=== PATIENT | female | born 1995 | race Caucasian/White ===

== ENCOUNTER 2016-11-20 14:26 | Emergency (ER) | payer MEDICAID ==
[~2016-11-20] VITALS: Ht 142.2 cm; Wt 47.0 kg
[2016-11-20 14:30] VITALS: Ht 142.2 cm; Wt 47.0 kg
[2016-11-20] MEDS ORDERED: ONDANSETRON 4 MG INJ IV STA (15:14)
[2016-11-20] MEDS ORDERED: morphine 4 MG/ML VIAL IV STA (15:14)
[2016-11-20] MEDS ORDERED: SOD CHLORIDE 0.9% 1,000 ML IV STA (15:14)
[2016-11-20 15:39] LABS: ADD SCAN DIFF NO
[2016-11-20 15:40] LABS: BASOPHIL # 0.1 10^3/ul (0.0-0.1); BASOPHILS % 0.5 % (0.0-2.0); EOSINOPHILS # 0.1 10^3/ul (0.0-0.5); EOSINOPHILS % 0.7 % (0.0-7.0); HEMATOCRIT 36.7 % (37.0-47.0); HEMOGLOBIN 12.5 g/dl (12.0-16.0); LYMPHOCYTES # 2.7 10^3/ul (0.8-2.9); LYMPHOCYTES % 25.8 % (15.0-51.0); MEAN CORPUSCULAR HEMOGLOBIN 30.4 pg (29.0-33.0); MEAN CORPUSCULAR HGB CONC 34.1 g/dl (32.0-37.0); MEAN CORPUSCULAR VOLUME 89.3 fl (82.0-101.0); MEAN PLATELET VOLUME 11.1 fl (7.4-10.4); MONOCYTE # 0.8 10^3/ul (0.3-0.9); MONOCYTES % 7.3 % (0.0-11.0); NEUTROPHILS % 65.5 % (39.0-77.0); PLATELET COUNT 269 10^3/UL (140-415); RED BLOOD COUNT 4.11 10^6/ul (4.20-5.40); RED CELL DISTRIBUTION WIDTH 12.6 % (11.5-14.5); WHITE BLOOD COUNT 10.6 10^3/ul (4.8-10.8)
[2016-11-20 15:46] LABS: ADD UMIC YES; UR ASCORBIC ACID NEGATIVE (NEGATIVE); UR BILIRUBIN (Dip) NEGATIVE (NEGATIVE); UR BLOOD (Dip) NEGATIVE (NEGATIVE); UR CLARITY CLOUDY (CLEAR); UR COLOR YELLOW (YELLOW); UR GLUCOSE (Dip) NEGATIVE (NEGATIVE); UR KETONES (Dip) NEGATIVE (NEGATIVE); UR LEUKOCYTE ESTERASE (Dip) NEGATIVE Leu/ul (NEGATIVE); UR NITRITE (Dip) NEGATIVE (NEGATIVE); UR RBC 8 /HPF (0-5); UR SPECIFIC GRAVITY (Dip) 1.015 (1.003-1.030); UR SQUAMOUS EPITHELIAL CELL MODERATE /HPF (FEW); UR TOTAL PROTEIN (Dip) NEGATIVE (NEGATIVE); UR UROBILINOGEN (Dip) NEGATIVE (NEGATIVE)
[2016-11-20 15:59] LABS: ALBUMIN/GLOBULIN RATIO 1.85; BILIRUBIN,INDIRECT 0.2 mg/dl (0-1.1); BILIRUBIN,TOTAL 0.2 mg/dl (0.2-1.3); CALCIUM 8.9 mg/dl (8.4-10.2); CREATININE 0.67 mg/dl (0.44-1.00); POTASSIUM 3.7 mmol/L (3.5-5.1); TOTAL PROTEIN 7.7 g/dl (6.1-8.1)
--- NOTE | 2016-11-20 16:06 | RADRPT ---
AMENDMENT: 11/20/2016 5:01:35 PM Barber Ferguson M.D The vermiform appendix is not visualized. There are no secondary signs to suggest appendicitis. Tr robert fluid is present in the pelvis. There is a clinical concern for an ovarian abnormalities such a s a hemorrhagic cyst and ultrasound should be considered for evaluation. PROCEDURE: CT scan of the abdomen and pelvis without IV contrast. CLINICAL INDICATION: 21-year-old female with abdominal pain. TECHNIQUE: Thin section axial, coronal and sagittal images were performed through the abdomen and pelvis without contrast. Radiation Dose: CTDI: 6.45 and DLP: 314 One or more of the following dose reduction techniques were used: - Automated exposure control. - Adjustment of the mA and/or kV according to patient size. Use of iterative reconstruction technique. COMPARISON: Chest x-ray 06/30/2016 06:18 a.m. FINDINGS: Soft tissues: Normal.. Lungs and pleural spaces: Normal. Heart: Normal. The liver, common bile duct and gallbladder: Normal. Gastrointestinal: The stomach and small bowel loops are unremarkable. There is fecal material throu ghout the colon. Pancreas: Normal. Kidneys, bladder and adrenal glands : Normal. Spleen: Normal. Lymph nodes: Normal. Reproductive system and pelvis : Normal. The uterus is retroflexed. Bony elements: Normal. Vasculature: Normal. IMPRESSION: 1. Constipation. 2. Retroflexed uterus. 3. Otherwise, unremarkable CT scan of the abdomen pelvis performed without IV contrast. RPTAT:AAJJ Physician Bre Date Time Electronically viewed and signed by Kimani Ferguson Physician on 11/20/2016 17:01 LAVONNE/
--- NOTE | 2016-11-20 17:45 | RADRPT ---
PROCEDURE: US Pelvis. CLINICAL INDICATION: Right pelvic pain. TECHNIQUE: The pelvis was evaluated with transabdominal sonography in the axial and sagittal plane s. COMPARISON: CT scan of the abdomen and pelvis dated 11/20/2016. FINDINGS: Uterus: 8.4 x 3.5 x 4.8 cm. Endometrium: 9.6 mm. Right ovary: 3.7 x 2.7 x 3.1 cm. Left ovary: 2.8 x 1.9 x 2.4 cm. Uterine masses: None. Ovarian masses: The right ovary has a benign-appearing cyst measuring 2.9 x 2.0 x 2.6 cm. There are no internal echoes or septations. The ovaries are otherwise normal. Color Doppler and pulsed Doppl er sonography demonstrate normal flow to the ovaries. Other pelvic masses: None. Free fluid: None. IMPRESSION: 1. Benign-appearing right ovarian cyst measuring 2.9 x 2.0 x 2.6 cm. No further evaluation require d. 2. Otherwise unremarkable pelvic ultrasound. RPTAT: QQ .Duarte Kilgore MD, Date Time Electronically viewed and signed by .Duarte Kilgore MD, on 11/20/2016 17:44 .R/
[2016-11-20] MEDS ORDERED: IBUP400T22 PO (17:59)
--- NOTE | 2016-11-20 19:52 | ERD ---
ER Documentation Chief Complaint Date/Time DATE: 11/20/16 TIME: 19:49 Chief Complaint Sent from for eval R/O appy HPI 21-year-old female patient with no significant past medical history was sent here by her primary care physician to rule out appendicitis. Patient reports that she has right lower quadrant abdominal pain that started earlier today. Denies any vomiting, diarrhea, constipation, chest pain, shortness of breath, fever, chills. Patient reports that it is achy and rates it a 10 out of 10. States that she did not take any pain medications. Reports that her last menses was sometime 3 weeks ago. Denies any vaginal bleeding or vaginal discharge. ROS All systems reviewed and are negative except as per history of present illness. Medications Home Meds Active Scripts Ibuprofen* (Motrin*) 400 Mg Tab, 400 MG PO Q6, #30 TAB Prov:ELIZ ROBINS PA-C 11/20/16 Allergies Allergies: Coded Allergies: No Known Allergy (Unverified , 11/20/16) PMhx/Soc Medical and Surgical Hx: pt denies Medical Hx, pt denies Surgical Hx Hx Alcohol Use: No Hx Substance Use: No Hx Tobacco Use: No Smoking Status: Never smoker Physical Exam Vitals Vital Signs Date Time Temp Pulse Resp B/P Pulse Ox O2 Delivery O2 Flow Rate FiO2 11/20/16 14:30 98.3 94 20 110/78 98 Physical Exam Const: [id number]-ecn-[id number], well-nourished. In no acute distress. Head: Atraumatic, normocephalic Eyes: Normal Conjunctiva without injection. No purulent discharge. ENT: Normal external ear, nose. Moist oropharynx without tonsillar exudates. Non -erythematous pharynx. Uvula midline. No drooling. No trismus. Neck: No cervical midline tenderness. Full range of motion. No meningismus. No cervical lymphadenopathy. No JVD. Resp: Clear to auscultation bilaterally. No wheezing, rhonchi, rales, or crackles. No accessory muscle use. No retractions. Cardio: Regular rate and rhythm. No murmurs, rubs or gallops. Abd: Soft, right lower quadrant tenderness, non distended. Normal bowel sounds. No palpable masses. No rebound tenderness. No guarding. Negative McBurney' s point. Negative psoas sign. Negative obturator sign. Skin: No petechiae or rashes Back: No midline tenderness. No CVA tenderness. Ext: No cyanosis, or edema. Neur: Awake and alert. Normal gait. Normal coordination. Psych: Normal Mood and Affect Results 24 hrs Laboratory Tests Test 11/20/16 15:15 11/20/16 15:20 Urine Color YELLOW Urine Clarity CLOUDY Urine pH 7.0 Urine Specific [place] 1.015 Urine Ketones NEGATIVEmg/dL Urine Nitrite NEGATIVEmg/dL Urine Bilirubin NEGATIVEmg/dL Urine Urobilinogen NEGATIVEmg/dL Urine Leukocyte Esterase NEGATIVELeu/ul Urine Microscopic RBC 8/HPF Urine Microscopic WBC 3/HPF Urine Squamous Epithelial Cells MODERATE/HPF Urine Hemoglobin NEGATIVEmg/dL Urine Glucose NEGATIVEmg/dL Urine Total Protein NEGATIVEmg/dl White Blood Count 10.610^3/ul Red Blood Count 4.1110^6/ul Hemoglobin 12.5g/dl Hematocrit 36.7% Mean Corpuscular Volume 89.3fl Mean Corpuscular Hemoglobin 30.4pg Mean Corpuscular Hemoglobin Concent 34.1g/dl Red Cell Distribution Width 12.6% Platelet Count 86606^3/UL Mean Platelet Volume 11.1fl Neutrophils % 65.5% Lymphocytes % 25.8% Monocytes % 7.3% Eosinophils % 0.7% Basophils % 0.5% Nucleated Red Blood Cells % 0.0/100WBC Neutrophils # 7.010^3/ul Lymphocytes # 2.710^3/ul Monocytes # 0.810^3/ul Eosinophils # 0.110^3/ul Basophils # 0.110^3/ul Nucleated Red Blood Cells # 0.010^3/ul Sodium Level 137mmol/L Potassium Level 3.7mmol/L Chloride Level 101mmol/L Carbon Dioxide Level 27mmol/L Anion Gap 13 Blood Urea Nitrogen 12mg/dl Creatinine 0.67mg/dl Glucose Level 81mg/dl Calcium Level 8.9mg/dl Total Bilirubin 0.2mg/dl Direct Bilirubin 0.00mg/dl Indirect Bilirubin 0.2mg/dl Aspartate Amino Transf (AST/SGOT) 19IU/L Alanine Aminotransferase (ALT/SGPT) 29IU/L Alkaline Phosphatase 79IU/L Total Protein 7.7g/dl Albumin 5.0g/dl Globulin 2.70g/dl Albumin/Globulin Ratio 1.85 Lipase 86U/L Current Medications Medications (Trade) Dose Ordered Sig/Deanna Route PRN Reason Start Time Stop Time Status Last Admin Dose Admin Sodium Chloride (NS) 1,000 ml @ 1,000 mls/hr Q1H STAT IV 11/20/16 15:14 11/20/16 16:13 DC 11/20/16 15:32 Morphine Sulfate (morphine) 4 mg ONCE STAT IV 11/20/16 15:14 11/20/16 15:16 DC 11/20/16 15:31 Ondansetron HCl (Zofran Inj) 4 mg ONCE STAT IV 11/20/16 15:14 11/20/16 15:16 DC 11/20/16 15:32 Procedures/MDM This is a 21-year-old female patient with no significant past medical history presents the ED complaining of right lower quadrant abdominal pain that started earlier today. Patient is afebrile and nontoxic-appearing. Patient has normal vital signs. Patient was further worked up with CBC, CMP, lipase, UA, urine , CT of the abdomen and pelvis without contrast. Patient's pain and symptoms have improved after treatment with 4 mg IV morphine, 4 mg IV Zofran. CBC: No leukocytosis. No e/o of systemic infection. No e/o anemia. CMP: No e/o severe acidosis, alkalosis, renal failure, diabetic ketoacidosis, liver disease Lipase within normal limits. Urine: No leukocyte esterase, no nitrites, no hematuria. Urine : Negative AMENDMENT: 11/20/2016 5:01:35 PM Barber Boss M.D The vermiform appendix is not visualized. There are no secondary signs to suggest appendicitis. Trace fluid is present in the pelvis. There is a clinical concern for an ovarian abnormalities such as a hemorrhagic cyst and ultrasound should be considered for evaluation. PROCEDURE: CT scan of the abdomen and pelvis without IV contrast. CLINICAL INDICATION: 21-year-old female with abdominal pain. TECHNIQUE: Thin section axial, coronal and sagittal images were performed through the abdomen and pelvis without contrast. Radiation Dose: CTDI: 6.45 and DLP: 314 One or more of the following dose reduction techniques were used: - Automated exposure control. - Adjustment of the mA and/or kV according to patient size. Use of iterative reconstruction technique. COMPARISON: Chest x-ray 06/30/2016 06:18 a.m. FINDINGS: Soft tissues: Normal.. Lungs and pleural spaces: Normal. Heart: Normal. The liver, common bile duct and gallbladder: Normal. Gastrointestinal: The stomach and small bowel loops are unremarkable. There is fecal material throughout the colon. Pancreas: Normal. Kidneys, bladder and adrenal glands : Normal. Spleen: Normal. Lymph nodes: Normal. Reproductive system and pelvis : Normal. The uterus is retroflexed. Bony elements: Normal. Vasculature: Normal. IMPRESSION: 1. Constipation. 2. Retroflexed uterus. 3. Otherwise, unremarkable CT scan of the abdomen pelvis performed without IV contrast. PROCEDURE: US Pelvis. CLINICAL INDICATION: Right pelvic pain. TECHNIQUE: The pelvis was evaluated with transabdominal sonography in the axial and sagittal planes. COMPARISON: CT scan of the abdomen and pelvis dated 11/20/2016. FINDINGS: Uterus: 8.4 x 3.5 x 4.8 cm. Endometrium: 9.6 mm. Right ovary: 3.7 x 2.7 x 3.1 cm. Left ovary: 2.8 x 1.9 x 2.4 cm. Uterine masses: None. Ovarian masses: The right ovary has a benign-appearing cyst measuring 2.9 x 2.0 x 2.6 cm. There are no internal echoes or septations. The ovaries are otherwise normal. Color Doppler and pulsed Doppler sonography demonstrate normal flow to the ovaries. Other pelvic masses: None. Free fluid: None. IMPRESSION: 1. Benign-appearing right ovarian cyst measuring 2.9 x 2.0 x 2.6 cm. No further evaluation required. 2. Otherwise unremarkable pelvic ultrasound. Symptoms could likely be secondary to a right ovarian cyst noted to be 2.92.0 2.6 cm in size. Low suspicion for gastritis, GERD, peptic ulcer disease, cholecystitis, choledocholithiasis, cholangitis, pancreatitis, appendicitis, bowel obstruction, ileus, volvulus, nephrolithiasis, pyelonephritis, hepatitis, perforated viscus, diverticulitis, abdominal hernia, acute abdomen, mesenteric ischemia or other emergent conditions. Discharge medications: Ibuprofen Follow up with primary care physician in 1-2 days for referral to an DIAL PRINTER. Instructed patient to return to the ED sooner for any worsening symptoms. Patient's questions were answered. Patient understood and agreed with discharge plan. Patient discharged stable. Departure Diagnosis: Primary Impression: Ovarian cyst Laterality: right Qualified Code: N83.201 - Cyst of right ovary Condition: Stable Patient Instructions: Abdominal Pain, Ovarian Cyst Referrals: [facility] YOU HAVE RECEIVED A MEDICAL SCREENING EXAM AND THE RESULTS INDICATE THAT YOU DO NOT HAVE A CONDITION THAT REQUIRES URGENT TREATMENT IN THE EMERGENCY DEPARTMENT. FURTHER EVALUATION AND TREATMENT OF YOUR CONDITION CAN WAIT UNTIL YOU ARE SEEN IN YOUR DOCTORS OFFICE WITHIN THE NEXT 1-2 DAYS. IT IS YOUR RESPONSIBILITY TO MAKE AN APPOINTMENT FOR FOLOW-UP CARE. IF YOU HAVE A PRIMARY DOCTOR --you should call your primary doctor and schedule an appointment IF YOU DO NOT HAVE A PRIMARY DOCTOR YOU CAN CALL OUR PHYSICIAN REFERRAL HOTLINE AT IF YOU CAN NOT AFFORD TO SEE A PHYSICIAN YOU CAN CHOSE FROM THE FOLLOWING [facility] [address] [facility] [address] [facility] [address] [facility] [address] [facility] [address] [facility]. [facility] [address] [facility]. [facility] YOU HAVE RECEIVED A MEDICAL SCREENING EXAM AND THE RESULTS INDICATE THAT YOU DO NOT HAVE A CONDITION THAT REQUIRES URGENT TREATMENT IN THE EMERGENCY DEPARTMENT. FURTHER EVALUATION AND TREATMENT OF YOUR CONDITION CAN WAIT UNTIL YOU ARE SEEN IN YOUR DOCTORS OFFICE WITHIN THE NEXT 1-2 DAYS. IT IS YOUR RESPONSIBILITY TO MAKE AN APPOINTMENT FOR FOLOW-UP CARE. IF YOU HAVE A PRIMARY DOCTOR --you should call your primary doctor and schedule and appointment IF YOU DO NOT HAVE A PRIMARY DOCTOR YOU CAN CALL OUR PHYSICIAN REFERRAL HOTLINE AT . IF YOU CAN NOT AFFORD TO SEE A PHYSICIAN YOU CAN CHOSE FROM THE FOLLOWING [facility]: [facility] [address] [place] [address] [facility] [address] [place] [address] [facility] [address] [place] [address] [facility]RGENT C[facility]/SPECIALTIES Additional Instructions: Visite a matthews kyle duenas para un EXAMEN para cori referencia a un gineclogo .Regrese a estas instalaciones si no se mejora emily esperbamos o emily le dijimos fiebre, nuseas, vmitos, diarrea, dolor abdominal de empeoramiento. ELIZ ROBINS PA-C Nov 20, 2016 19:51 dijimos fiebre, nuseas, vmitos, diarrea, dolor abdominal de empeoramiento. ELIZ ROBINS PA-C Nov 20, 2016 19:51
== END 2016-11-20 18:06 | disposition left against medical advice (07) ==
LOC: FTE 14:26
DX: N83.201 Unspecified ovarian cyst, right side (principal); R10.2 Pelvic and perineal pain
CPT/HCPCS: 36415; 74176; 76856; 80053; 81001; 83690; 85025; 96374; 96375; J2270; J2405; J7030; Z7502

== ENCOUNTER 2017-05-02 21:21 | Emergency (ER) | payer MEDICAID ==
[~2017-05-02] VITALS: Ht 152.4 cm; Wt 45.9 kg
[~2017-05-02 21:21] MED LIST: IBUP400T22 PO
[2017-05-02 21:29] VITALS: Ht 152.4 cm; Wt 45.9 kg
[2017-05-02] MEDS ORDERED: SOD CHLORIDE 0.9% 1,000 ML IV STA (22:26)
[2017-05-02] MEDS ORDERED: ONDANSETRON 4 MG INJ IV STA (22:26)
[2017-05-02] MEDS ORDERED: morphine 4 MG/ML VIAL IV STA (22:26)
--- NOTE | 2017-05-02 22:52 | ERD ---
ER Documentation Chief Complaint Chief Complaint R side abd pain and vomit x 3 days; LMP 04/23/17 HPI 22-year-old female presents here to emergency department for complaints of right lower quadrant abdominal pain that started 3 days ago. Patient describes the pain as sharp pain, 6/10 scale, accompanied with vomiting. Patient denies any hematuria or dysuria. Patient denies any fever chills. Patient denies any blood in the vomit. Patient denies any blood in his stool or black stool. Patient denies any sick contacts. ROS All systems reviewed and are negative except as per history of present illness. Medications Home Meds Active Scripts Ondansetron (Ondansetron Odt) 4 Mg Tab.rapdis, 4 MG PO Q6H Y for NAUSEA AND/OR VOMITING, #20 TAB Prov:ANA MARÍA MORTON NP 05/03/17 Hydrocodone/Acetaminophen ([place] 5-325 Tablet) 1 Each Tablet, 1 TAB PO Q6H Y for PAIN, #20 TAB Prov:ANA MARÍA MORTON NP 05/03/17 Ibuprofen* (Motrin*) 600 Mg Tab, 600 MG PO Q6H Y for PAIN AND OR ELEVATED TEMP, #30 TAB Prov:ANA MARÍA MORTON NP 05/03/17 Ibuprofen* (Motrin*) 400 Mg Tab, 400 MG PO Q6, #30 TAB Prov:ELIZ ROBINS PA-C 11/20/16 Allergies Allergies: Coded Allergies: No Known Allergy (Unverified , 11/20/16) PMhx/Soc Medical and Surgical Hx: pt denies Medical Hx, pt denies Surgical Hx Hx Alcohol Use: No Hx Substance Use: No Hx Tobacco Use: No FmHx Family History: No coronary disease, No diabetes, No other Physical Exam Vitals Vital Signs Date Time Temp Pulse Resp B/P Pulse Ox O2 Delivery O2 Flow Rate FiO2 05/03/17 01:28 97.5 80 20 93/55 100 Room Air 05/02/17 21:29 97.7 89 20 121/69 99 Physical Exam GENERAL: The patient is well developed and appropriate for usual state of health, in no apparent distress. CHEST: Clear to auscultation bilaterally. There are no rales, wheezes or rhonchi. HEART: Regular rate and rhythm. No murmurs, clicks, rubs or gallops. No S3 or S4. ABDOMEN: Soft, nontender and nondistended. Good bowel sounds. No rebound or guarding. No gross peritonitis. No gross organomegaly or masses. No Amin sign or McBurney point tenderness. BACK: No midline or flank tenderness. EXTREMITIES: Equal pulses bilaterally. There is no peripheral clubbing, cyanosis or edema. No focal swelling or erythema. Full range of motion. Grossly neurovascularly intact. NEURO: Alert and oriented. Cranial nerves 2-12 intact. Motor strength in all 4 extremities with 5/5 strength. Sensation grossly intact. Normal speech and gait. SKIN: There is no apparent rash or petechia. The skin is warm and dry. HEMATOLOGIC AND LYMPHATIC: There is no evidence of excessive bruising or lymphedema. No gross cervical, axillary, or inguinal lymphadenopathy. Result Diagram: 05/02/17223905/02/172239 Results 24 hrs Laboratory Tests Test 05/02/17 22:40 White Blood Count 11.410^3/ul Red Blood Count 4.3710^6/ul Hemoglobin 13.2g/dl Hematocrit 37.3% Mean Corpuscular Volume 85.4fl Mean Corpuscular Hemoglobin 30.2pg Mean Corpuscular Hemoglobin Concent 35.4g/dl Red Cell Distribution Width 11.8% Platelet Count 15542^3/UL Mean Platelet Volume 11.1fl Neutrophils % 65.0% Lymphocytes % 19.4% Monocytes % 6.3% Eosinophils % 8.3% Basophils % 0.7% Nucleated Red Blood Cells % 0.0/100WBC Neutrophils # 7.410^3/ul Lymphocytes # 2.210^3/ul Monocytes # 0.710^3/ul Eosinophils # 1.010^3/ul Basophils # 0.110^3/ul Nucleated Red Blood Cells # 0.010^3/ul Urine Color YELLOW Urine Clarity CLEAR Urine pH 5.0 Urine Specific [place] 1.024 Urine Ketones 2+mg/dL Urine Nitrite NEGATIVEmg/dL Urine Bilirubin NEGATIVEmg/dL Urine Urobilinogen 1+mg/dL Urine Leukocyte Esterase TRACELeu/ul Urine Microscopic RBC 6/HPF Urine Microscopic WBC 44/HPF Urine Squamous Epithelial Cells FEW/HPF Urine Mucus MODERATE/HPF Urine Hemoglobin NEGATIVEmg/dL Urine Glucose NEGATIVEmg/dL Urine Total Protein NEGATIVEmg/dl Sodium Level 141mmol/L Potassium Level 3.5mmol/L Chloride Level 104mmol/L Carbon Dioxide Level 26mmol/L Anion Gap 15 Blood Urea Nitrogen 16mg/dl Creatinine 0.62mg/dl Glucose Level 94mg/dl Calcium Level 9.5mg/dl Total Bilirubin 0.5mg/dl Direct Bilirubin 0.00mg/dl Indirect Bilirubin 0.5mg/dl Aspartate Amino Transf (AST/SGOT) 22IU/L Alanine Aminotransferase (ALT/SGPT) 32IU/L Alkaline Phosphatase 104IU/L Total Protein 8.3g/dl Albumin 4.6g/dl Globulin 3.70g/dl Albumin/Globulin Ratio 1.24 Lipase 52U/L Current Medications Medications (Trade) Dose Ordered Sig/Deanna Route PRN Reason Start Time Stop Time Status Last Admin Dose Admin Sodium Chloride (NS) 1,000 ml @ 1,000 mls/hr Q1H STAT IV 05/02/17 22:26 05/02/17 23:25 DC 05/02/17 22:45 Morphine Sulfate (morphine) 4 mg ONCE STAT IV 05/02/17 22:26 05/02/17 22:28 DC 05/02/17 22:46 Ondansetron HCl (Zofran Inj) 4 mg ONCE STAT IV 05/02/17 22:26 05/02/17 22:28 DC 05/02/17 22:45 Ketorolac Tromethamine (Toradol) 30 mg ONCE STAT IV 05/03/17 00:28 05/03/17 00:30 DC 05/03/17 00:33 Patient was given medication for pain here in emergency department, after treatment, patient verbalized feeling much better. Patient's pain is improved. Patient was given Zofran here in the emergency department. After treatment, patient was able to tolerate po fluids here in the emergency department without any vomiting. There is no signs and symptoms of dehydration. Normal saline IV bolus was given here in emergency department for rehydration, patient tolerated IV fluids. PROCEDURE: CT Abdomen and Pelvis without contrast. CLINICAL INDICATION: Right lower quadrant abdominal pain times 3 days TECHNIQUE: CT scan of the abdomen and pelvis without contrast was performed on a multidetector high-resolution CT scanner. The patient was scanned without intravenous contrast. Coronal and sagittal reformatted images were obtained from the axial source images. Images were reviewed on a high-resolution PACS workstation. The total exam CTDI equals 4.09 mGy and the total exam DLP equals 221.79 mGy-cm. One or more the following dose reduction techniques were utilized: Automated exposure control, adjustment of the mA and / or kV according to patient's size, or use of iterative reconstruction technique. DICOM images are available. COMPARISON: CT 11/20/2016 FINDINGS: Minimal linear atelectasis/fibrosis at the lung bases. No pneumoperitoneum is seen. No abnormality is seen in the liver, gallbladder, spleen, pancreas, adrenals, kidneys. No renal stone, hydronephrosis or ureteral stone is seen. No definite abnormality is seen in the stomach. No biliary dilatation is seen. No abdominal aortic aneurysm is seen. The bladder is nearly empty. No definite abnormality of the uterus or adnexal regions is seen on CT. There is a small amount of free fluid in cul-de-sac. Stool seen in much of the colon. There is no specific evidence of acute appendicitis seen. No dilated small bowel loops are seen. No enlarged lymph nodes are seen in the abdomen or pelvis. No osseous abnormality is seen. IMPRESSION: Small amount of free fluid in cul-de-sac which may be physiologic. No normal appendix is seen. No specific evidence of acute appendicitis is seen. Please see above. RPTAT: HJES .Barber Lei MD, Date Time Electronically viewed and signed by .Barber Lei MD, on 05/02/2017 23:27 .S/ CC: ANA MARÍA MORTON NP PROCEDURE: US Pelvis. CLINICAL INDICATION: Right lower quadrant/pelvic abdominal pain. Last menstrual period 04/25/2017 TECHNIQUE: Multiple sonographic images of the pelvis were obtained utilizing a transabdominal and endovaginal technique. The images were reviewed on a PACS workstation. COMPARISON: CT abdomen and pelvis without contrast of 05/02/2017 and pelvic ultrasound of 11/20/2016 FINDINGS: The uterus measures 6.6 x 3.6 x 2.9 cm and is unremarkable. The thickness of the endometrium equals 1.3 mm. The right ovary measures 3.2 x 1.8 x 1.9 cm and is unremarkable. The left ovary is not seen. Color flow and spectral analysis demonstrates normal arterial and venous flow in the right ovary. No adnexal mass is seen. Small amount of free fluid in cul-de-sac and right adnexal region. IMPRESSION: Small amount of free fluid in cul-de-sac and right adnexal region which may be physiologic. Left ovary not seen. Otherwise unremarkable examination. RPTAT: HJES .Barber Lei MD, MD Date Time Electronically viewed and signed by .Barber Lei MD, MD on 05/03/2017 00:22 .S/ CC: ANA MARÍA MORTON STONE REPAIRER Procedures/MDM Medical Decision Making: Patient symptoms of abdominal pain nonspecific at this time, there is low suspicion for abdominal emergencies at this time. Patients abdominal exam is normal at this time. Patients radiology exam does not show any abdominal emergencies at this time. There is low suspicion for appendicitis , cholecystitis, abdominal aortic aneurysms or peritonitis at this time. No symptoms of ovarian torsion. There is low suspicion for sepsis. Patient appears well and is hemodynamically stable. Disposition: Home. Condition: Stable Prescription ibuprofen [place] Zofran Instructions: Patient is advised to take medications as prescribed. Patient is advised to rest, increase fluid intake and do brat diet for next 1-2 days and progress as tolerated. Patient is advised that if symptoms are worse, severe abdominal pain, uncontrolled vomiting, high fever, severe flank pain, worst signs and symptoms, to return to the emergency department immediately. Otherwise, patient can follow up with primary care doctor in 5-7 days. Disclaimer: Inadvertent spelling and grammatical errors are likely due to EHR/ dictation software use and do not reflect on the overall quality of patient care. Also, please note that the electronic time recorded on this note does not necessarily reflect the actual time of the patient encounter. Departure Diagnosis: Primary Impression: Abdominal pain Abdominal location: right lower quadrant Qualified Code: R10.31 - Right lower quadrant abdominal pain Condition: Stable ANA MARÍA MORTON NP May 02, 2017 22:52
[2017-05-02 23:13] LABS: BASOPHIL # 0.1 10^3/ul (0.0-0.1); BASOPHILS % 0.7 % (0.0-2.0); EOSINOPHILS % 8.3 % (0.0-7.0); HEMATOCRIT 37.3 % (37.0-47.0); HEMOGLOBIN 13.2 g/dl (12.0-16.0); LYMPHOCYTES # 2.2 10^3/ul (0.8-2.9); LYMPHOCYTES % 19.4 % (15.0-51.0); MEAN CORPUSCULAR HEMOGLOBIN 30.2 pg (29.0-33.0); MEAN CORPUSCULAR HGB CONC 35.4 g/dl (32.0-37.0); MEAN CORPUSCULAR VOLUME 85.4 fl (82.0-101.0); MEAN PLATELET VOLUME 11.1 fl (7.4-10.4); MONOCYTE # 0.7 10^3/ul (0.3-0.9); MONOCYTES % 6.3 % (0.0-11.0); NEUTROPHIL # 7.4 10^3/ul (1.6-7.5); PLATELET COUNT 233 10^3/UL (140-415); RED BLOOD COUNT 4.37 10^6/ul (4.20-5.40); RED CELL DISTRIBUTION WIDTH 11.8 % (11.5-14.5); WHITE BLOOD COUNT 11.4 10^3/ul (4.8-10.8)
--- NOTE | 2017-05-02 23:27 | RADRPT ---
PROCEDURE: CT Abdomen and Pelvis without contrast. CLINICAL INDICATION: Right lower quadrant abdominal pain times 3 days TECHNIQUE: CT scan of the abdomen and pelvis without contrast was performed on a multidetector hig h-resolution CT scanner. The patient was scanned without intravenous contrast. Coronal and sagittal reformatted images were obtained from the axial source images. Images were reviewed on a high-resol [employer] PACS workstation. The total exam CTDI equals 4.09 mGy and the total exam DLP equals 221.79 mGy -cm. One or more the following dose reduction techniques were utilized: Automated exposure control, adjus tment of the mA and / or kV according to patient's size, or use of iterative reconstruction techniqu e. DICOM images are available. COMPARISON: CT 11/20/2016 FINDINGS: Minimal linear atelectasis/fibrosis at the lung bases. No pneumoperitoneum is seen. No abnormality i s seen in the liver, gallbladder, spleen, pancreas, adrenals, kidneys. No renal stone, hydronephrosi s or ureteral stone is seen. No definite abnormality is seen in the stomach. No biliary dilatation i s seen. No abdominal aortic aneurysm is seen. The bladder is nearly empty. No definite abnormality o f the uterus or adnexal regions is seen on CT. There is a small amount of free fluid in cul-de-sac. Stool seen in much of the colon. There is no specific evidence of acute appendicitis seen. No dilate d small bowel loops are seen. No enlarged lymph nodes are seen in the abdomen or pelvis. No osseous abnormality is seen. IMPRESSION: Small amount of free fluid in cul-de-sac which may be physiologic. No normal appendix is seen. No sp ecific evidence of acute appendicitis is seen. Please see above. RPTAT: HJES .Barber Lei MD, MD Date Time Electronically viewed and signed by .Barber Lei MD, MD on 05/02/2017 23:27 .S/
[2017-05-02 23:35] LABS: ALBUMIN 4.6 g/dl (3.3-4.9); ALBUMIN/GLOBULIN RATIO 1.24; BILIRUBIN,INDIRECT 0.5 mg/dl (0-1.1); BILIRUBIN,TOTAL 0.5 mg/dl (0.2-1.3); CALCIUM 9.5 mg/dl (8.4-10.2); CREATININE 0.62 mg/dl (0.44-1.00); POTASSIUM 3.5 mmol/L (3.5-5.1); TOTAL PROTEIN 8.3 g/dl (6.1-8.1)
[2017-05-02 23:41] LABS: ADD UMIC YES; UR ASCORBIC ACID 40 mg/dL (NEGATIVE); UR BILIRUBIN (Dip) NEGATIVE (NEGATIVE); UR BLOOD (Dip) NEGATIVE (NEGATIVE); UR CLARITY CLEAR (CLEAR); UR COLOR YELLOW (YELLOW); UR GLUCOSE (Dip) NEGATIVE (NEGATIVE); UR KETONES (Dip) 2+ mg/dL (NEGATIVE); UR LEUKOCYTE ESTERASE (Dip) TRACE Leu/ul (NEGATIVE); UR MUCUS MODERATE /HPF (NONE SEEN); UR NITRITE (Dip) NEGATIVE (NEGATIVE); UR RBC 6 /HPF (0-5); UR SPECIFIC GRAVITY (Dip) 1.024 (1.003-1.030); UR SQUAMOUS EPITHELIAL CELL FEW /HPF (FEW); UR TOTAL PROTEIN (Dip) NEGATIVE (NEGATIVE); UR UROBILINOGEN (Dip) 1+ mg/dL (NEGATIVE)
--- NOTE | 2017-05-03 00:22 | RADRPT ---
PROCEDURE: US Pelvis. CLINICAL INDICATION: Right lower quadrant/pelvic abdominal pain. Last menstrual period 04/25/2017 TECHNIQUE: Multiple sonographic images of the pelvis were obtained utilizing a transabdominal and endovaginal technique. The images were reviewed on a PACS workstation. COMPARISON: CT abdomen and pelvis without contrast of 05/02/2017 and pelvic ultrasound of 11/21/19 17 FINDINGS: The uterus measures 6.6 x 3.6 x 2.9 cm and is unremarkable. The thickness of the endometrium equals 1.3 mm. The right ovary measures 3.2 x 1.8 x 1.9 cm and is unremarkable. The left ovary is not seen . Color flow and spectral analysis demonstrates normal arterial and venous flow in the right ovary. No adnexal mass is seen. Small amount of free fluid in cul-de-sac and right adnexal region. IMPRESSION: Small amount of free fluid in cul-de-sac and right adnexal region which may be physiologic. Left ova ry not seen. Otherwise unremarkable examination. RPTAT: HJES .Barber Lei MD, MD Date Time Electronically viewed and signed by .Barber Lei MD, on 05/03/2017 00:22 .S/
[2017-05-03] MEDS ORDERED: KETOROLAC 30 MG INJ IV STA (00:28)
[2017-05-03] MEDS ORDERED: IBUP-1542 PO (01:14)
[2017-05-03] MEDS ORDERED: HYDR-906 PO (01:14)
[2017-05-03] MEDS ORDERED: ONDA4TAB14 PO (01:14)
[2017-05-03 01:28] VITALS: BP 93/55; PULSE 80; RESP 20; TEMP 97.5
== END 2017-05-03 01:30 | disposition home or self-care (01) ==
LOC: FTE 21:21
DX: R10.31 Right lower quadrant pain (principal)
CPT/HCPCS: 36415; 74176; 76830; 76856; 80053; 81001; 83690; 85025; 96374; 96375; J1885; J2270; J2405; J7030; Z7502

== ENCOUNTER 2018-01-16 19:56 | Emergency (ER) | END 2018-01-16 23:40 | disposition home or self-care (01) ==

== ENCOUNTER 2018-04-05 18:54 | Emergency (ER) | END 2018-04-05 20:37 | disposition home or self-care (01) ==